=== PATIENT | male | born 1960 | race Caucasian/White ===

== ENCOUNTER 2017-11-08 06:36 | Day surgery (SDC) | payer BC ==
[~2017-11-08 06:36] MED LIST: Lactated Ringers 1,000 ML IV SCH
[2017-11-08] MEDS ORDERED: Ondansetron 4 MG/2 ML SDV ONE (07:17)
[2017-11-08] MEDS ORDERED: Lidocaine 2% 5 ML SDV ONE (07:17)
[2017-11-08] MEDS ORDERED: Propofol 200 MG/20 ML SDV ONE (07:18)
[2017-11-08] MEDS ORDERED: Midazolam 1 MG/ML 2 ML SDV ONE (07:18)
[2017-11-08] MEDS ORDERED: fentaNYL 100 MCG/2 ML SDV ONE (07:18)
--- NOTE | 2017-11-08 07:24 | PCM.PREANE ---
Preanesthetic Assessment - Anesthesia/Transfusion/Family Hx Anesthesia History: Prior Anesthesia Without Reaction Family History of Anesthesia Reaction: No Transfusion History: No Prior Transfusion(s) - Review of Systems General: No Symptoms Pulmonary: No Symptoms Cardiovascular: No Symptoms Gastrointestinal: No Symptoms Neurological: No Symptoms Other: Reports: None - Physical Assessment NPO Status Date: 11/07/17 Height: 1.8 m Weight: 77.111 kg ASA Class: 2 Airway Class: Mallampati = 2 Dentition: Reports: Normal Dentition ROM/Head Extension: Full Lungs: Clear to Auscultation, Normal Respiratory Effort Cardiovascular: Regular Rate, Regular Rhythm - Allergies Allergies/Adverse Reactions: Allergies Allergy/AdvReac Type Severity Reaction Status Date / Time No Known Allergies Allergy Verified 11/03/17 09:57 - Anesthesia Plan Pre-Op Medication Ordered: None - Acknowledgements Anesthesia Type Planned: General Anesthesia Pt an Appropriate Candidate for the Planned Anesthesia: Yes Alternatives and Risks of Anesthesia Discussed w Pt/Guardian: Yes Pt/Guardian Understands and Agrees with Anesthesia Plan: Yes PreAnesthesia Questionnaire HEENT History: Reports: None Cardiovascular History: Reports: Hypertension, Other (See Below) Other Cardiovascular History: palpatations - Past Surgical History Head Surgeries/Procedures: Reports: None HEENT Surgical History: Reports: Other (See Below) Other HEENT Surgeries/Procedures: ear surgery x3 Musculoskeletal Surgical History: Reports: Arthroscopic Knee, Other (See Below) Other Musculoskeletal Surgeries/Procedures:: elbow surgery, knee surgery x4, foot surgery for FB removal - SUBSTANCE USE Smoking Status *Q: Never Smoker Recreational Drug Use History: No - HOME MEDS Home Medications: Home Meds Losartan/Hydrochlorothiazide [Losartan-HCTZ 50-12.5 MG] 1 tab PO DAILY 11/03/17 [History] - CURRENT (IN HOUSE) MEDS Current Meds: Current Medications Hydrocodone Bitart/Acetaminophen ([place] 325-5 Mg) 1 - 2 tab PO Q4H PRN PRN Reason: Pain Cefazolin Sodium/Dextrose 1 gm (/ Premix) 50 mls @ 100 mls/hr IV ONCALL HARESH Lactated Ringer's (Ringers, Lactated) 1,000 mls @ 100 mls/hr IV ASDIRECTED HARESH Last Admin: 11/08/17 06:59 Dose: 100 mls/hr Discontinued Medications Fentanyl (Sublimaze) Confirm Administered Dose 100 mcg .ROUTE .STK-MED ONE Stop: 11/08/17 07:19 Lidocaine (Xylocaine-Mpf 2%) Confirm Administered Dose 5 ml .ROUTE .STK-MED ONE Stop: 11/08/17 07:18 Midazolam HCl (Versed 1 Mg/Ml) Confirm Administered Dose 2 mg .ROUTE .STK-MED ONE Stop: 11/08/17 07:19 Ondansetron HCl (Zofran) Confirm Administered Dose 4 mg .ROUTE .STK-MED ONE Stop: 11/08/17 07:18 Propofol (Diprivan 20 Ml) Confirm Administered Dose 200 mg .ROUTE .STK-MED ONE Stop: 11/08/17 07:19
[2017-11-08] MEDS ORDERED: Lidocaine 1% 20 ML MDV ONE (07:28)
[2017-11-08] MEDS ORDERED: Acetaminophen/HYDROcodone 325-5 MG Tab PO PRN (08:00)
[2017-11-08] MEDS ORDERED: ceFAZolin 1 GM in Premix Bag 1 BAG IV SCH (08:00)
[2017-11-08] MEDS ORDERED: fentaNYL 100 MCG/2 ML SDV IVPUSH PRN (08:27)
[2017-11-08] MEDS ORDERED: Ketorolac 30 MG/ML SDV ONE (08:32)
[2017-11-08] MEDS ORDERED: Phenylephrine/Normal Saline 100 MCG/ML 10 ML Syringe ONE (08:40)
--- NOTE | 2017-11-08 08:44 | PCM.OPNOTE ---
- General Post-Op/Procedure Note Date of Surgery/Procedure: 11/08/17 Operative Procedure(s): R knee scope with PMM Post-Op Diagnosis: R knee medial meniscus tear Anesthesia Technique: General LMA Primary Surgeon: Blank Jorge Patient Intake Coordinator: Cristal Figueroa in mLs: 5 Condition: Good Free Text/Narrative:: #[id number]
--- NOTE | 2017-11-08 09:23 | OR ---
SURGEON: Blank Jorge MD DATE OF PROCEDURE: 11/08/2017 PREOPERATIVE DIAGNOSIS: Left knee medial meniscus tear. POSTOPERATIVE DIAGNOSIS: Left knee medial meniscus tear. PROCEDURE: Left knee arthroscopy with partial medial meniscectomy. PETS SALESPERSON: Cristal Figueroa PA-C. ANESTHESIA: General. ESTIMATED BLOOD LOSS: 5 mL. TOURNIQUET TIME: 15 minutes. COMPLICATIONS: None. DVT PROPHYLAXIS: Not indicated. IMPLANTS USED: None. BRIEF HISTORY: Estiven is a 57-year-old male, who has had complaint of progressive left knee pain. He had failed conservative treatment. Due to his lack of response to conservative treatment, I did recommend surgical intervention. The risks and goals of procedure were discussed with the patient and were documented preoperatively. He agreed to proceed. DESCRIPTION OF PROCEDURE: The patient was properly identified and brought to the operating room. He was transferred from the OR cart and placed on the operating room table in supine position. General anesthesia was administered. After adequate anesthesia was obtained, a well-padded tourniquet was applied to the left lower extremity. The left lower extremity was then prepped in standard fashion using ChloraPrep solution. It was then sterilely draped. A time-out was performed to ensure correct site and procedure. Preoperative antibiotics were given. The surgical site had been marked preoperatively. An Esmarch was used to exsanguinate the left lower extremity and the tourniquet was inflated to 250 mmHg. A lateral portal incision was made. Blunt trocar and cannula were introduced into the suprapatellar pouch. Camera, inflow, and outflow were assembled. Suprapatellar pouch showed no signs of synovitis. The patellofemoral joint was visualized. 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 No loose fragments were noted. The patella appeared to track centrally. I then extended down the lateral and medial gutter. No loose bodies were identified. I then entered the medial compartment. A medial portal arthrotomy was established. A blunt probe was inserted. He was found to have a degenerative meniscus tear along the posterior horn. This was resected with a combination of biters and shaver. It was again probed and the remainder was found to be stable. The joint surfaces showed mild grade 2 chondromalacia only. I then entered the notch. Both the ACL and PCL were visualized and probed. They were intact. I then entered the lateral compartment. No significant degenerative changes were noted. The meniscus was probed and found to be intact. The instruments were then removed from the knee. The portal sites were closed with 3-0 nylon. Lidocaine 1% was injected along the portal tracts. Xeroform gauze was placed over the wounds and a bulky dressing was applied. The tourniquet was then deflated. He was awakened from his anesthetic and transferred back to the operating room cart. He was brought to recovery room in stable condition. All needle and sponge counts were correct. IRENE / DOMINICK /[id number]
--- NOTE | 2017-11-08 09:33 | PCM.POSTAN ---
POST ANESTHESIA ASSESSMENT - MENTAL STATUS Mental Status: Alert, Oriented - RESPIRATORY Respiratory Status: Respiratory Rate WNL, Airway Patent, O2 Saturation Stable - CARDIOVASCULAR CV Status: Pulse Rate WNL, Blood Pressure Stable - GASTROINTESTINAL GI Status: No Symptoms - POST OP HYDRATION Hydration Status: Adequate & Stable
--- NOTE | 2017-11-08 09:34 | PCM48HPAN ---
Post Anesthesia Note - EVALUATION WITHIN 48HRS OF ANESTHETIC Vital Signs in Normal Range: Yes Patient Participated in Evaluation: Yes Respiratory Function Stable: Yes Airway Patent: Yes Cardiovascular Function Stable: Yes Hydration Status Stable: Yes Pain Control Satisfactory: Yes Nausea and Vomiting Control Satisfactory: Yes Mental Status Recovered: Yes
[2017-11-08] MEDS ORDERED: HYDROmorphone 2 MG/ML Syringe IVPUSH ONE (13:06)
== END 2017-11-08 10:10 | disposition home or self-care (01) ==
LOC: MW.SDS 06:36
PROVIDERS: ATTEND Orthopaedic Surgery
DX: S83.242A Other tear of medial meniscus, current injury, left knee, initial encounter (principal); M94.262 Chondromalacia, left knee; I10 Essential (primary) hypertension; Z79.899 Other long term (current) drug therapy
CPT/HCPCS: 29881; J0690; J1885; J2250; J2405; J3010; J7120; 01402; 88304; J2704

== ENCOUNTER 2025-02-14 13:41 | Day surgery (SDC) | payer MEDICARE ==
[2025-02-14 14:43] LABS: BASOPHILS ABSOLUTE AUTO 0.06 K/uL (0.00-0.20); BASOPHILS PERCENT AUTO 0.4 % (0.0-1.0); EOSINOPHILS ABSOLUTE AUTO 0.03 K/uL (0.00-0.45); EOSINOPHILS PERCENT AUTO 0.2 % (0.0-6.0); HEMATOCRIT 32.7 % (42.0-52.0); HEMOGLOBIN 11.2 g/dL (14.0-18.0); IMMATURE GRAN ABSOLUTE AUTO 0.03 K/uL (0.00-0.05); IMMATURE GRAN PERCENT AUTO 0.2 % (0.0-0.4); LYMPHOCYTES PERCENT AUTO 5.2 % (24.0-44.0); MEAN CORPUSCULAR HEMOGLOBIN 27.7 pg (28.0-32.0); MEAN CORPUSCULAR HGB CONC 34.3 g/dL (32.0-36.0); MEAN CORPUSCULAR VOLUME 80.7 fL (83.0-99.0); MEAN PLATELET VOLUME 8.5 fL (9.4-12.4); MONOCYTES PERCENT AUTO 3.7 % (0.0-8.0); NEUTROPHILS ABSOLUTE AUTO 12.03 K/uL (1.80-7.70); NEUTROPHILS PERCENT AUTO 90.3 % (41.0-71.0); PLATELET COUNT,PLT 302 K/uL (150-400); RED BLOOD CELL COUNT 4.05 M/uL (4.52-5.90); WHITE BLOOD CELL COUNT,WBC 13.35 K/uL (3.9-11.3)
[2025-02-14] MEDS: Sodium Chloride 0.9% 1,000 ML IV ONE (15:14)
[2025-02-14] MEDS: Ondansetron 4 MG/2 ML SDV IVPUSH ONE (15:14)
[2025-02-14] MEDS: HYDROmorphone 0.5 MG/0.5 ML Syringe IVPUSH ONE ×2 (15:14→16:56)
[2025-02-14 15:15] LABS: A/G RATIO 1.2 (0.9-1.6); ALBUMIN 3.9 g/dL (3.4-5.0); BILIRUBIN TOTAL 0.7 mg/dL (0.2-1.0); CALCIUM 8.6 mg/dL (8.5-10.1); CARBON DIOXIDE,CO2 26.6 mmol/L (21.0-32.0); CREATININE 0.9 mg/dL (0.8-1.3); EST CRCL DRUG DOSING (CG) 87.15 mL/min; POTASSIUM,K 3.3 mmol/L (3.5-5.1); PROTEIN TOTAL,TP 7.1 g/dL (6.4-8.2)
[2025-02-14] MEDS: Iopamidol 755 MG/ML 500 ML Multipack Bottle IVPUSH STA ×2 (16:05→16:06)
[2025-02-14] MEDS: cefOXitin 2 GM in Sodium Chloride 0.9% 50 ML IV ONE (16:55)
[2025-02-14] MEDS: Sodium Chloride 0.9% 1,000 ML IV SCH (16:56)
[2025-02-14] MEDS ORDERED: Lactated Ringers 1,000 ML IV SCH (17:30)
[2025-02-14] MEDS ORDERED: Propofol 200 MG/20 ML SDV ONE (17:33)
[2025-02-14] MEDS ORDERED: fentaNYL 250 MCG/5 ML SDV ONE ×2 (17:33→18:38)
[2025-02-14] MEDS ORDERED: Ketamine HCL/NACL, ISO-OSM 50 MG/5 ML Syringe ONE (17:33)
[2025-02-14] MEDS ORDERED: Morphine 10 MG/ML SDV ONE (17:33)
[2025-02-14] MEDS ORDERED: Rocuronium Bromide 50 MG/5 ML Syringe ONE (17:33)
[2025-02-14] MEDS ORDERED: Ropivacaine 0.5% 5 MG/ML 30 ML SDV ONE (17:35)
[2025-02-14] MEDS ORDERED: Bupivacaine 0.5% 30 ML SDV ONE (17:35)
[2025-02-14] MEDS ORDERED: dexmedeTOMIDine HCl 200 MCG/2 ML SDV ONE (17:36)
[2025-02-14] MEDS ORDERED: ceFAZolin 1 GM Vial ONE (17:36)
[2025-02-14] MEDS ORDERED: Sodium Chloride 0.9% 40 ML ONE (17:39)
[2025-02-14] MEDS ORDERED: Lidocaine 2% 11 ML Jelly Filled Syringe ONE (17:45)
[2025-02-14] MEDS ORDERED: Dexamethasone 4 MG/ML 5 ML MDV ONE (19:00)
[2025-02-14] MEDS ORDERED: Ondansetron 4 MG/2 ML SDV ONE (19:00)
[2025-02-14] MEDS ORDERED: Sugammadex Sodium 200 MG/2 ML VIAL IV ONE (19:00)
[2025-02-14] MEDS ORDERED: Acetaminophen/HYDROcodone 325-5 MG Tab PO PRN (19:32)
[2025-02-14] MEDS ORDERED: Morphine 2 MG/ML SYRINGE IVPUSH PRN (19:33)
[2025-02-14] MEDS: Lactated Ringers 1,000 ML IV SCH (21:03)
== END 2025-02-15 01:00 | disposition home or self-care (01) ==
LOC: MW.ED 13:41 → MW.SDS 17:37 → MW.MS 17:37 → MW.SDS 02-15 01:00
PROVIDERS: ATTEND Surgery
DX: K35.30 Acute appendicitis with localized peritonitis, without perforation or gangrene (principal); I10 Essential (primary) hypertension; Z91.09 Other allergy status, other than to drugs and biological substances; Z79.899 Other long term (current) drug therapy
CPT/HCPCS: 36415; 44970; 74177; 80053; 83605; 83690; 85025; A9270; J0665; J0694; J1100; J2272; J2405; J2704; J2795; J3010; J7030; J7120; Q9967; 00840; 64488; 99284; J0690; J3490